=== PATIENT | male | born 1985 | race Caucasian/White ===

== ENCOUNTER 2019-06-12 15:34 | Emergency (ER) | payer SELFPAY ==
[~2019-06-12] VITALS: Ht 165.1 cm; Wt 113.4 kg
[2019-06-12 15:36] VITALS: Ht 165.1 cm; Wt 113.4 kg
[2019-06-12 16:23] LABS: BASOPHIL % 0.2 % (0-2); PLATELET COUNT 299 x10^3mcL (130-400); RED CELL DISTRIBUTION WIDTH 13.4 % (11.5-14.5)
[2019-06-12 16:45] LABS: CALCIUM 8.9 mg/dL (8.5-10.1); CARBON DIOXIDE 25.9 mmol/L (21-32); CHLORIDE SERUM 106 mmol/L (98-107); GFR1 > 60 mL/min; GLUCOSE SERUM 107 mg/dL (74-106); POTASSIUM SERUM 3.9 mmol/L (3.5-5.1); SODIUM SERUM 142 mmol/L (136-145)
[2019-06-12 16:52] LABS: ALBUMIN 3.8 g/dL (3.4-5.0); ALKALINE PHOSPHATASE 92 U/L (46-116); ALT/SGPT 40 U/L (16-63); BILIRUBIN TOTAL 1.1 mg/dL (0.20-1.00); CHOLESTEROL 160 mg/dL (<200); TOTAL PROTEIN, SERUM 7.8 g/dL (6.4-8.2)
[2019-06-12 16:57] VITALS: BP 139/95
[2019-06-12 17:01] LABS: AST/SGOT 29 U/L (15-37)
== END 2019-06-12 16:57 | disposition left against medical advice (07) ==
LOC: ED 15:34
PROVIDERS: Specialist
DX: R41.82 Altered mental status, unspecified (principal)
CPT/HCPCS: G0480; J2310; J7030